=== PATIENT | female | born 1950 | race Caucasian/White ===

== ENCOUNTER → 2020-10-20 | Outpatient (CLI) | payer MEDICARE | LOC: KOH-I 10-07 14:30 | DX: Z12.2 Encounter for screening for malignant neoplasm of respiratory organs (principal); F17.210 Nicotine dependence, cigarettes, uncomplicated | CPT/HCPCS: 71271 ==

== ENCOUNTER → 2020-12-05 | Outpatient (CLI) | payer MEDICARE | LOC: RAD 14:35 | DX: M19.90 Unspecified osteoarthritis, unspecified site (principal); M54.5 Low back pain; M47.816 Spondylosis without myelopathy or radiculopathy, lumbar region | CPT/HCPCS: 72100; 73522 ==

== ENCOUNTER → 2021-06-22 | Outpatient (CLI) | payer MEDICARE ==
[2021-06-22 15:04] LABS: HEMOGLOBIN 14.2 gm/dl (12.3-15.3); RED BLOOD COUNT 4.82 M/UL (4.00-5.10); WHITE BLOOD COUNT 9.5 K/UL (4.5-11.0)
== END ==
LOC: RAD 13:55
PROVIDERS: Allergy & Immunology
DX: J30.1 Allergic rhinitis due to pollen (principal); R06.00 Dyspnea, unspecified; J30.89 Other allergic rhinitis; H10.45 Other chronic allergic conjunctivitis
CPT/HCPCS: 71046; 82785; 85025

== ENCOUNTER → 2021-08-05 | Day surgery (SDC) | payer MEDICARE ==
[~2021-08-05] MED LIST: AMLODIPINE BESY10 MG PO; BREZTRI AEROS10.7 GM INH; DAILY VALUE1 EACH PO; FISH OIL 1,0001 EAC4 PO; GABAPENTIN300 MG PO; HYDROCHLOROTHIA25 MG PO; HYDROXYZINE HCL25 MG PO; IBUPROFEN800 MG PO; LOSARTAN POTAS100 MG PO; METOPROLOL SUCC50 MG PO; MONTELUKAST SOD10 MG PO; NASONEX17 GM; OMEPRAZOLE40 MG PO; ROBAXIN 750 MG750 MG PO; VITAMIN B12-FO1 EACH PO; VOLTAREN ARTHRI20 GM TP
== END | disposition home or self-care (01) ==
LOC: OR 06:49
DX: Z12.11 Encounter for screening for malignant neoplasm of colon (principal); K44.9 Diaphragmatic hernia without obstruction or gangrene; K64.0 First degree hemorrhoids; K64.4 Residual hemorrhoidal skin tags; K21.9 Gastro-esophageal reflux disease without esophagitis; K59.09 Other constipation; I10 Essential (primary) hypertension; E66.01 Morbid (severe) obesity due to excess calories; F17.200 Nicotine dependence, unspecified, uncomplicated; Z68.39 Body mass index [BMI] 39.0-39.9, adult; Z79.899 Other long term (current) drug therapy; Z88.0 Allergy status to penicillin; Z88.2 Allergy status to sulfonamides; Z20.822 Contact with and (suspected) exposure to COVID-19; Z96.649 Presence of unspecified artificial hip joint
CPT/HCPCS: 43239; G0121; 94664; J2704; J7040

== ENCOUNTER 2021-08-08 14:40 | Emergency (ER) | payer MEDICARE ==
[2021-08-08] MEDS ORDERED: PERCOCET 5/325 T1 EA PO (18:38)
[2021-08-08] MEDS ORDERED: MEDROL DOSEPAK 24 MG PO (18:45)
== END 2021-08-08 19:06 | disposition home or self-care (01) ==
LOC: ER1 14:40
DX: M48.061 Spinal stenosis, lumbar region without neurogenic claudication (principal); M51.86 Other intervertebral disc disorders, lumbar region; Z88.0 Allergy status to penicillin; Z88.2 Allergy status to sulfonamides; F17.210 Nicotine dependence, cigarettes, uncomplicated
CPT/HCPCS: 72131; 96372; 96374; 99283; J2270; J2360; J2930

== ENCOUNTER → 2021-10-15 | Outpatient (CLI) | payer MEDICARE, OTHER ==
[~2021-10-15] MED LIST changes: +MEDROL DOSEPAK 24 MG PO; +PERCOCET 5/325 T1 EA PO
== END ==
LOC: MAMO 13:41
DX: Z12.31 Encounter for screening mammogram for malignant neoplasm of breast (principal); Z78.0 Asymptomatic menopausal state
CPT/HCPCS: 77063; 77067; 77080

== ENCOUNTER → 2021-12-18 | Outpatient (CLI) | payer MEDICARE | LOC: US 12-07 10:00 → MAMO 12-07 10:30 | DX: R92.8 Other abnormal and inconclusive findings on diagnostic imaging of breast (principal) | CPT/HCPCS: 76641-LT; 77065; G0279 ==

== ENCOUNTER → 2022-03-05 | Outpatient (CLI) | payer MEDICARE ==
[~2022-03-05] MED LIST changes: +ALBUTEROL2.5 MG/3 M INH; +AZELASTINE205.5 MCG/; +FLONASE ALLER15.8 ML; -GABAPENTIN300 MG PO; +HYDROCODON-ACE1 EAC2 PO; +IBU800 MG PO; +LIPITOR TAB 2020 MG PO; +METFORMIN HCL500 M2 PO; +NEURONTIN800 MG PO; +PROVENTIL HFA6.7 GM INH
== END ==
LOC: OPSV2 11:00
DX: Z01.818 Encounter for other preprocedural examination (principal); C50.912 Malignant neoplasm of unspecified site of left female breast; J44.1 Chronic obstructive pulmonary disease with (acute) exacerbation; I10 Essential (primary) hypertension; R91.8 Other nonspecific abnormal finding of lung field
CPT/HCPCS: 71046; 93005

== ENCOUNTER 2022-03-18 06:14 | Observation (INO) | payer MEDICARE, OTHER ==
[~2022-03-18] VITALS: Ht 167.6 cm; Wt 98.0 kg
[2022-03-18] MEDS ORDERED: CELEXA10 MG PO (06:44)
[2022-03-19] MEDS ORDERED: HYDROCODON-ACE1 EAC2 PO (12:17)
[2022-03-21] MEDS ORDERED: ZOFRAN ODT 4 MG4 MG GT (09:14)
[2022-03-23] MEDS ORDERED: VALIUM5 MG PO (08:45)
== END 2022-03-19 14:39 | disposition home or self-care (01) ==
LOC: OR 06:14 → M/S 11:45 → OR 03-19 14:39 → M/S 03-19 14:39
PROVIDERS: ADMIT Surgery
DX: C50.912 Malignant neoplasm of unspecified site of left female breast (principal); I10 Essential (primary) hypertension; E78.5 Hyperlipidemia, unspecified; J44.9 Chronic obstructive pulmonary disease, unspecified; K21.9 Gastro-esophageal reflux disease without esophagitis; F41.9 Anxiety disorder, unspecified; F17.210 Nicotine dependence, cigarettes, uncomplicated; M16.9 Osteoarthritis of hip, unspecified; E66.9 Obesity, unspecified; Z68.35 Body mass index [BMI] 35.0-35.9, adult; Z88.0 Allergy status to penicillin; Z79.899 Other long term (current) drug therapy
CPT/HCPCS: 82962; 88341; 88342; 94640; 94664; 94760; G0378; J0690; J1100; J1170; J1720; J1885; J2001; J2250; J2270; J2370; J2405; J2704; J3010

== ENCOUNTER → 2022-04-06 | Outpatient (CLI) | payer MEDICARE ==
[~2022-04-06] MED LIST changes: +CELEXA10 MG PO; +VALIUM5 MG PO; +ZOFRAN ODT 4 MG4 MG GT
== END ==
LOC: CT 09:24
DX: R91.1 Solitary pulmonary nodule (principal); R59.0 Localized enlarged lymph nodes
CPT/HCPCS: 71250

== ENCOUNTER → 2022-05-13 | Outpatient (CLI) | payer MEDICARE, OTHER | LOC: NM 08:10 | DX: C50.412 Malignant neoplasm of upper-outer quadrant of left female breast (principal); C79.51 Secondary malignant neoplasm of bone | CPT/HCPCS: 78306; A9503 ==

== ENCOUNTER → 2022-05-26 | Outpatient (CLI) | payer MEDICARE | LOC: CT 09:15 | DX: C50.412 Malignant neoplasm of upper-outer quadrant of left female breast (principal); M47.816 Spondylosis without myelopathy or radiculopathy, lumbar region; M48.061 Spinal stenosis, lumbar region without neurogenic claudication | CPT/HCPCS: 72194; Q9967 ==